=== PATIENT | female | born 1985 | race Two or more races ===

== ENCOUNTER 2020-06-28 13:43 | Inpatient (IN) ==
[2020-06-28] MEDS ORDERED: RINGER'S SOLUTION,LACTATED 1,000 ML IV PRN (14:07)
[2020-06-28] MEDS ORDERED: RINGER'S SOLUTION,LACTATED 1,000 ML IV ONE (14:07)
[2020-06-28] MEDS ORDERED: ONDANSETRON 4 MG TAB.RAPDIS PO PRN (14:07)
[2020-06-28] MEDS ORDERED: DEXTROSE 5%-LACTATED RINGERS 1,000 ML IV PRN (14:07)
[2020-06-28] MEDS ORDERED: OXYTOCIN/0.9 % SODIUM CHLORIDE 30 UNITS/500 ML BAG IV ONE ×2 (14:07→17:29)
--- NOTE | 2020-06-28 15:52 | HP ---
Chief Complaint - Chief Complaint Date of Service: 06/28/20 Time of Service: 15:40 Chief Complaint: contractions History of Present Illness: 34 yo at 40 3/7 wks presents to L&D complaining of painful contractions since this am. She denies LARIOS, visual changes, epigastric pain, LOF, decreased FM. 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 Medical History (Last Reviewed 06/28/20 @ 15:40 by Corbin Kohli DO) Elevated blood pressure reading in office without diagnosis of hypertension (Resolved) No significant past medical history Surgical History: Surgical History (Last Reviewed 06/28/20 @ 15:40 by Corbin Kohli DO) No pertinent past surgical history Family History: Family History (Last Reviewed 06/28/20 @ 15:40 by Corbin Kohli DO) Father Hypertension Social History: (Last Reviewed 06/28/20 @ 15:40 by Corbin Kohli DO) Social History: Marital status: current occupational status: other Highest level of school completed/degree received: high school graduate Tobacco: Smoking Status: Never smoker Alcohol: alcohol intake: never Substance Use: substance use type: does not use Review Of Systems (GEN) - Review of Systems Generalized/Overall Review: Present: No Symptoms Reported EENTM: Present: No Symptoms Reported Respiratory: Present: No Symptoms Reported Cardiac: Present: No Symptoms Reported Abdominal: Present: Other - contractions Genitourinary: Present: No Symptoms Reported Musculoskeletal: Present: No Symptoms Reported Neurological: Present: No Symptoms Reported Skin: Present: No Symptoms Reported Endocrine: Present: No Symptoms Reported Allergies/Adverse Reactions: Allergies Allergy/AdvReac Type Severity Reaction Status Date / Time No Known Allergies Allergy Verified 06/22/20 15:35 Home Medications: HOME MEDICATIONS vitamins no.163-iron bis-gly 20 mg-folate no.10 1 mg tablet 1 tab PO DAILY 01/23/20 [Last Taken Unknown] Exam - Exam Vital Signs: Vital Signs - Last Taken Temp 36.3 C 06/28/20 14:28 Pulse 90 06/28/20 14:28 Resp 18 06/28/20 14:28 BP 133/80 06/28/20 14:28 Pulse Ox 99 06/28/20 14:28 Constitutional: Present: Alert, Oriented x3, Cooperative, Mild distress - with contractions ENT Exam: Present: hearing grossly normal Neck: Present: trachea midline. Absent: thyromegaly Breasts: Present: Exam deferred Respiratory: Present: lungs clear, no respiratory distress Cardiovascular/Chest: Present: no edema, no murmur, tachycardia Abdomen: Present: soft, nontender, no rebound tenderness, other - Gravid /Rectal: Present: Other - cervix - 6/80/-1 Extremity: Present: no pedal edema, no calf tenderness Skin Exam: Present: normal color, warm/dry, no cyanosis Lymphatic: Present: no adenopathy Neurologic: Present: alert, normal mood/affect, oriented x 3 Appearance: Present: appropriate appearance, appropriate insight Eye contact: Present: cooperative, good eye contact Thoughts: Present: normal mood /affect Assessment/Plan - Assessment/Plan (1) Labor established Assessment: Admit for routine management of labor. Epidural and pitocin PRN. Problem: Acute (2) Post-dates Problem: Acute Qualifiers: Post-term type: 40-42 weeks gestation Qualified Code(s): O48.0 - Post-term (3) RhD negative Problem: Chronic Non Stress Test - Status NST: 06/28/20 Reason for NST: threatened labor Monitor Mode: External Acceleration: Present Decelerations: None Variability: Moderate 6-25 bpm Baseline Heart Rate: 125 Activity: reactive Reactive: 15 by 15 - Assessment NST Assessment: other - labor - Plan NST Plan: Admit to L&D
--- NOTE | 2020-06-28 15:54 | PN ---
Progess Note - Interim Date: 06/28/20 Time: 15:53 Narrative: 06/28/20 15:53 Patient rating contractions as moderate Vital signs stable. FHT: 125 baseline, reassuring contractions q 3-6 min Cervix: 7-8/75/-2, AROM at 1525 clear Impression: Intrauterine at 40 3/7 weeks postdates labor. Plan: Expect normal spontaneous vaginal delivery soon.
[2020-06-28] MEDS ORDERED: LIDOCAINE HCL 50 ML VIAL ONE (17:16)
[2020-06-28] MEDS ORDERED: HYDROCORTISONE 30 APPL TUBE TP PRN (17:29)
[2020-06-28] MEDS ORDERED: SENNOSIDES 8.6 MG TABLET PO PRN (17:29)
[2020-06-28] MEDS ORDERED: BENZOCAINE/MENTHOL 81 SPRAY CAN TP PRN (17:29)
[2020-06-28] MEDS ORDERED: IBUPROFEN 800 MG TABLET PO PRN (17:29)
[2020-06-28] MEDS ORDERED: BISACODYL 10 MG SUPP.RECT RC PRN (17:29)
[2020-06-28] MEDS ORDERED: oxyCODONE HCL/ACETAMINOPHEN 1 TAB TABLET PO PRN (17:29)
[2020-06-28] MEDS ORDERED: GLYCERIN/WITCH HAZEL LEAF 40 APPL BOX TP PRN (17:29)
[2020-06-28] MEDS ORDERED: LIDOCAINE HCL 50 ML VIAL IJ ONE (17:36)
--- NOTE | 2020-06-28 17:36 | OR ---
Operative Report - Dictated Report Narrative: Indication: Suspicion of potential/immediate compromise Pre Procedure: Patient was counseled to the risk, benefits, and alternatives to operative vaginal delivery. All questions were answered. Patient consented to proceed with operative vaginal delivery. Cervix was completely dilated and effaced, maternal- size appropriate for application, bladder was emptied, flexion point identified, cup choice appropriate for application site, maternal tissue excluded from vacuum cup heart rate interpretation: Deceleration in the 60s x3 minutes, EFW 3800 g, station +3, Position of head OP Anesthesia: None Procedure: Total application time of the Kiwi Pro with Palm Pump was 30 seconds Maximum vacuum achieved was 300 mm Hg- inadequate suction pressure due to excessive hair Number of pulls 2 Number of involuntary releases 2 Vacuum reduced between contractions Advancement in station with each pull Degree of rotation 0-45 Post Procedure: Vigorously crying viable male born at 1710 on 06/28/2020 with Apgars 9 and 9, weighing 3722 g in OP presentation with left foot cord x1. Placenta spontaneously delivered EBL less than 100 Cord gases not collected Lacerations - 2cm first-degree vaginal laceration repaired with 3-0 Vicryl Rapide No injury, no shoulder dystocia History for History for Definition: * The number of deliveries resulting in a live the patient experienced prior to current hospitalization * The previous delivery of live twins or any live multiple gestation is considered one live event. *If primagravida or nulliparous is documented select zero for the number of previous live births. Live Events: Live Events: 2
[2020-06-28] MEDS: IBUPROFEN 800 MG TABLET PO PRN (17:45)
[2020-06-28] MEDS ORDERED: RHO(D) IMMUNE GLOBULIN 1,500 UNIT SYRINGE IM ONE (22:37)
[2020-06-28] MEDS: DOCUSATE SODIUM 100 MG CAPSULE PO SCH (22:38)
--- NOTE | 2020-06-29 07:44 | PN ---
Subjective - Date and Time Seen Date: 06/29/20 Time: 07:44 Objective - Vitals Vitals: Last Vital Signs Temp 36.2 C 06/28/20 17:45 Pulse 78 06/29/20 01:42 Resp 18 06/29/20 01:42 BP 126/78 06/29/20 01:42 Pulse Ox 99 06/29/20 01:42 Patient denies complaints. Lochia wnl abdomen - soft, nontender Uterus -firm, at umbilicus - 1 No calf tenderness Impression: day #1 - s/p spontaneous vaginal delivery. Plan: Continue routine care Assessment/Plan - Problems/Diagnosis (1) Labor established Problem: Acute (2) Post-dates Problem: Acute Qualifiers: Post-term type: 40-42 weeks gestation Qualified Code(s): O48.0 - Post-term (3) RhD negative Problem: Chronic
[2020-06-29] MEDS: DOCUSATE SODIUM 100 MG CAPSULE PO SCH ×2 (09:36→20:07)
[2020-06-29] MEDS: PRENATAL VITS96/IRON FUM/FOLIC 1 TAB TABLET PO SCH (09:36)
[2020-06-29] MEDS ORDERED: RHO(D) IMMUNE GLOBULIN 1,500 UNIT SYRINGE IM ONE ×2 (15:44→15:45)
[2020-06-29] MEDS: IBUPROFEN 800 MG TABLET PO PRN (22:03)
--- NOTE | 2020-06-30 04:38 | PN ---
Subjective - Date and Time Seen Date: 06/30/20 Time: 04:36 Subjective Narrative: Patient without complaints Objective Objective Narrative: See vital signs - Review of Systems Generalized/Overall Review: Reports: No Symptoms Reported Misc: All systems neg except as marked - Vitals Vitals: Last Vital Signs Temp 36.9 C 06/30/20 01:00 Pulse 89 06/30/20 01:00 Resp 18 06/30/20 01:00 BP 140/65 H 06/30/20 01:00 Pulse Ox 98 06/30/20 01:00 - Exam Constitutional: Present: Alert, Oriented x3, Cooperative, No distress ENT Exam: Present: hearing grossly normal Abdomen: Present: soft, nontender, nondistended Extremity: Present: non-tender, no calf tenderness Skin Exam: Present: normal color, warm/dry, no cyanosis Neurologic: Present: alert, normal mood/affect, oriented x 3 Appearance: Present: appropriate appearance, appropriate insight, neat, no memory impairment Eye contact: Present: cooperative, good eye contact, normal speech Thoughts: Present: normal thought pattern Assessment/Plan Plan Narrative: PPD 2 s/p VAVD Doing well Depo-Provera for contraception Discharge today - Problems/Diagnosis (1) 40 weeks gestation of Problem: Acute (2) Vacuum extraction, delivered, current hospitalization Problem: Acute (3) Normal Pap smear Problem: Acute (4) Immune to rubella Problem: Acute (5) RhD negative Problem: Chronic
--- NOTE | 2020-06-30 04:42 | DS ---
OB Discharge Summary (1) 40 weeks gestation of Status: Acute (2) Vacuum extraction, delivered, current hospitalization Status: Acute (3) Normal Pap smear Status: Acute (4) Immune to rubella Status: Acute (5) RhD negative Status: Chronic Delivery Date: 06/28/20 Delivery Time: 17:10 :: 3 Para:: 3 Gestational weeks:: 40 Gestational days:: 3 Intrapartum Procedures: Vacuum-Assisted Procedures: Rho (D) ig /OP Complications: No Complications Discharge Diagnosis: Term -Delivered - Discharge Information Date of Discharge: 06/30/20 Hospital Course: Patient presented to L&D in labor. Delivery and course were uncomplicated. Discharge Location: Home Disposition: Home self-care Condition: Good Activity on Discharge:: Activity as tolerated, Pelvic Rest Discharge Diet: General/regular food Complete Home Medications List: Complete Home Medication List: vitamins no.163-iron bis-gly 20 mg-folate no.10 1 mg tablet 1 tab PO DAILY 01/23/20 - Plan Discharge to:: Home Comment:: Routine Discharge Instructions Follow up in office in:: 6 weeks - [place] Information Weight (Grams): 3,722 Infant Sex: Male Score 1 min: 9 Score 5 min: 9 Complications: Other Other Complications: prolonged decel prior to delivery, attempted vacuum delivery, left foot cord, OP presentation.
[2020-06-30 07:29] VITALS: BP 129/87
[2020-06-30] MEDS ORDERED: MEDROXYPROGESTERONE ACET 150 MG/ML SYRG IM ONE ×2 (08:00→10:00)
[2020-06-30] MEDS: PRENATAL VITS96/IRON FUM/FOLIC 1 TAB TABLET PO SCH (10:04)
[2020-06-30] MEDS: DOCUSATE SODIUM 100 MG CAPSULE PO SCH (10:04)
== END 2020-06-30 13:45 | disposition home or self-care (01) | DRG 807 ==
LOC: OB 13:43
PROVIDERS: ADMIT Obstetrics & Gynecology; ATTEND Obstetrics & Gynecology